=== PATIENT | female | born 1980 | race Caucasian/White ===

== ENCOUNTER → 2017-01-30 09:38 | Emergency (ER) | payer OTHER ==
[~2017-01-30 09:38] MED LIST: LORazepam TAB(*) 1 MG PO ONE; oxyCODONE/Acetamin 5/325 MG* TAB PO ONE
--- NOTE | 2017-01-30 12:37 | RAD ---
HISTORY: Back pain COMPARISONS: CT of the chest dated May 20, 2015 TECHNIQUE: Multiple contiguous axial CT scans were obtained of the thoracic spine without intravenous contrast, with coronal and sagittal multiplanar reformations. FINDINGS: SPINAL CANAL: Evaluation of the central canal is limited on CT technique; however, there is no obvious canalicular mass or epidural hemorrhage. ALIGNMENT: The alignment is normal. VERTEBRAL BODIES: The vertebral bodies are preserved in height. The bones are normal in attenuation. There is mild anterolateral marginal osteophyte formation. There is mild depression of the superior endplate of T12 suggestive of a Schmorl's node versus remote trauma, stable from 2014. JOINTS: There is mild osteoporosis of the costovertebral articulations. MUSCULATURE: Unremarkable INTERVERTEBRAL DISCS: There is mild diffuse loss of intervertebral disc height throughout the spine. AXIAL IMAGES: There is no osseous central canal stenosis or neuroforaminal narrowing. SOFT TISSUES: The visualized soft tissues of the chest and abdomen are unremarkable. OTHER: None IMPRESSION: MILD DEGENERATIVE DISC DISEASE AND OSTEOARTHRITIS. NO OSSEOUS NEURAL FORAMINAL AREA OR CENTRAL CANAL STENOSIS.
--- NOTE | 2017-01-30 12:39 | RAD ---
HISTORY: Back pain COMPARISONS: MRI dated November 26, 2011 TECHNIQUE: Multiple contiguous axial CT scans were obtained of the lumbar spine without intravenous contrast, with coronal and sagittal multiplanar reformations. FINDINGS: SPINAL CANAL: Evaluation of the central canal is limited on CT technique; however, there is no obvious canalicular mass or epidural hemorrhage. ALIGNMENT: The alignment is normal. VERTEBRAL BODIES: The vertebral bodies are preserved in height. The bones are normal in attenuation. There is mild anterolateral marginal osteophyte formation most now set L5-S1 and T11-T12 Incidentally noted is a small accessory ribs at L1 JOINTS: There is mild facet hypertrophy change MUSCULATURE: Unremarkable INTERVERTEBRAL DISCS: There is diffuse loss of intervertebral disc height throughout the spine. AXIAL IMAGES: T12-L1: There is no osseous neural foraminal narrowing or central canal stenosis. L1-L2: There is no osseous neural foraminal narrowing or central canal stenosis. L2-L3: There is no osseous neural foraminal narrowing or central canal stenosis. L3-L4: There is no osseous neural foraminal narrowing or central canal stenosis. L4-L5: There is a mild broad-based disc bulge. There is no osseous neural foraminal area or central canal stenosis. L5-S1: There is a mild broad-based disc bulge. There is no osseous neural foraminal area or central canal stenosis. SOFT TISSUES: The visualized soft tissues of the abdomen are unremarkable. OTHER: None IMPRESSION: MILD DEGENERATIVE DISC DISEASE AND OSTEOARTHRITIS. THERE IS NO SIGNIFICANT OSSEOUS NEURAL FORAMINAL AREA CENTRAL CANAL STENOSIS.
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
[2017-01-30 13:09] VITALS: BP 128/65
== END | disposition home or self-care (01) ==
LOC: ED 09:38
DX: M54.5 Low back pain (principal); M51.36 Other intervertebral disc degeneration, lumbar region; M19.90 Unspecified osteoarthritis, unspecified site; F17.210 Nicotine dependence, cigarettes, uncomplicated
CPT/HCPCS: 72128; 72131; 99282; A9270-GY

== ENCOUNTER 2017-10-11 12:02 | Emergency (ER) | payer MEDICAID ==
--- NOTE | 2017-10-11 13:26 | ED ---
Skin Complaint - HPI Summary HPI Summary: Patient here with red and which she believes are infected spots on her face. Reports a few days ago she developed a red swollen area on the left lower chin - started as pustule. This was quite edematous and so she applied a warm compress and milked the area - she was able to express purulent drainage and reports it is better since (swelling reduced) however she still has redness and irritation. She also woke this morning with another area of redness and irritation within her left eyebrow area. She is a history of cellulitis with staph infection and would like antibiotic to treat these she's had difficulty controlling them in the past once they start. Denies known history of MRSA. No injuries to face - reports the simply popped about an aware. - History of Current Complaint Chief Complaint: EDGeneral Time Seen by Provider: 10/11/17 12:31 Stated Complaint: SWOLLEN SORES ON FACE Hx Obtained From: Patient Pain Intensity: 0 - Allergy/Home Medications Allergies/Adverse Reactions: Allergies Allergy/AdvReac Type Severity Reaction Status Date / Time MS Penicillins [Penicillins] Allergy Intermediate Swelling Verified 01/30/17 11: 11 PMH/Surg Hx/FS Hx/Imm Hx Previously Healthy: Yes Endocrine/Hematology History: Reports: Hx Anemia Denies: Hx Anticoagulant Therapy, Hx Blood Disorders, Hx Diabetes, Autoimmune Disease Musculoskeletal History: Reports: Hx Back Problems - low back pain Sensory History: Reports: Hx Contacts or Glasses - contact lenses Opthamlomology History: Reports: Hx Contacts or Glasses - contact lenses Neurological History: Reports: Hx Headaches - Surgical History Surgery Procedure, Year, and Place: [place] [facility] [place]ious Disease History: No Infectious Disease History: Reports: History Other Infectious Disease - h/o "staph" Denies: Traveled Outside the [place] in Last 30 Days - Family History Known Family History: Positive: Other - POS: CVA, [place] - Social History Lives: With Family Alcohol Use: None Hx Substance Use: Yes Substance Use Type: Reports: Marijuana Substance Use Comment - Amount & Last Used: Xanax, took husbands Oxycodone, smoked pot once Hx Tobacco Use: Yes Smoking Status (MU): Current Every Day Smoker Review of Systems Constitutional: Negative Negative: Fever, Chills Positive: no symptoms reported Musculoskeletal: Negative Skin: Other - wound Neurological: Negative Psychological: Normal All Other Systems Reviewed And Are Negative: Yes Physical Exam Triage Information Reviewed: Yes Vital Signs On Initial Exam: Initial Vitals Temp Pulse Resp BP Pulse Ox 98 F 71 16 124/70 99 10/11/17 12:03 10/11/17 12:03 10/11/17 12:03 10/11/17 12:03 10/11/17 12:03 Vital Signs Reviewed: Yes Appearance: Positive: Well-Appearing, No Pain Distress, Well-Nourished Skin: Positive: Warm, Skin Color Reflects Adequate Perfusion, Dry - erythematous area of edema over Lt eyebrow - warm to touch - no drainage, no chery pustule; erythematous/ecchymotic area over chin - no drainage Eyes: Positive: Normal, EOMI ENT: Positive: Normal ENT inspection, Hearing grossly normal, Pharynx normal - no lesions Neck: Positive: Supple, Nontender, No Lymphadenopathy Respiratory/Lung Sounds: Positive: Clear to Auscultation, Breath Sounds Present Cardiovascular: Positive: Normal Musculoskeletal: Positive: Normal, Strength/ROM Intact Neurological: Positive: Normal, Sensory/Motor Intact, Alert, Oriented to Person Place, Time, CN Intact II-III Psychiatric: Positive: Anxious Diagnostics - Vital Signs Vital Signs Temp Pulse Resp BP Pulse Ox 10/11/17 12:25 98.1 F 73 123/78 98 10/11/17 12:03 98 F 71 16 124/70 99 - Laboratory Lab Statement: Any lab studies that have been ordered have been reviewed, and results considered in the medical decision making process. Course/Dx - Diagnoses Provider Diagnoses: Cellulitis of face Discharge - Sign-Out/Discharge Documenting (check all that apply): Discharge/Admit/Transfer - Discharge Plan Condition: Stable Disposition: HOME Prescriptions: Sulfamethox/Trimethoprim DS* [Bactrim DS 800/160 TAB*] 1 tab PO BID #20 tab Patient Education Materials: Cellulitis (ED) Referrals: [facility], PHOTOENGRAVING PROOFER [Primary Care Provider] - Additional Instructions: Continue to gently wash her areas of concern with antibacterial soap and water. Avoid covering with makeup, moisturizers, etc. to prevent further irritation or congestion of infected area. He may continue to use a warm compress over areas of swelling to encourage drainage is needed. He may take ibuprofen with food as needed for pain or swelling. An antibiotic has been sent to your pharmacy - complete the course as directed and follow-up with PCP if symptoms persist. *If you develop worsening of facial swelling, fever, difficulty breathing or swallowing, return to the emergency department - Billing Disposition and Condition Condition: STABLE Disposition: HOME
[2017-10-11 13:38] VITALS: BP 119/70
== END 2017-10-11 13:28 | disposition home or self-care (01) ==
LOC: ED 12:02
DX: L98.9 Disorder of the skin and subcutaneous tissue, unspecified (principal); F17.200 Nicotine dependence, unspecified, uncomplicated; Z86.19 Personal history of other infectious and parasitic diseases; Z88.0 Allergy status to penicillin
CPT/HCPCS: 99282

== ENCOUNTER 2018-01-30 13:59 | Emergency (ER) | payer OTHER ==
[2018-01-30 14:27] VITALS: BP 119/74
--- OUTSIDE RECORDS SUMMARY | 2018-01-30 14:51 | XMS REPORT ---
:1980 External Reference #:[id number] Author Organization [facility] Address [address] [place] [id number] Phone [phone] Care Team Providers Name Role Phone Nia Stafford M.D., R.D. Primary Care Physician Unavailable Payers Type Date Identification Numbers Payment Provider Subscriber Commercial Expires: Policy Number: [id number] Andrea Gordon 2017 [employer] PayID: [id number] [place] [address] Medigap Part B Effective: Policy Number: Medicaid/Computer Marilyn Gordon 2017 [id number] Science Expires: 2017 Group Name: 1 [address] PayID: [id number] [place] [address] Commercial Effective: Policy Number: Andrea [employer] Marilyn Gordon 2017 [id number] Med PayID: [id number] [place] [address] Problems Description No Information Family History Date Family Member(s) Problem(s) Comments Father Hypertension Father Heart Disease Father Diabetes Mother Depression Social History Type Date Description Comments Marital Status Negative For Lives With Daughter Lives With Son Work Status Not Currently Working Cigarette Use Light tobacco smoker (10 or fewer cigarettes/day) ETOH Use Denies alcohol use Smoking Light tobacco smoker (10 or fewer cigarettes/day) Daily Caffeine Consumes on average 1 cup of coffee per day Daily Caffeine Consumes on average 1 soda per day Exercise Type/Frequency Does not exercise Allergies, Adverse Reactions, Alerts Date Description Reaction Status Severity Comments 07/04/2015 Penicillins active 07/04/2015 Zoloft active Medications Medication Date Status Form Strength Qnty SIG Indications Ordering Provider Hydroxyzine HCL 09/09 Active Tablets 50mg 30tab 1 tab by F41.9 Grupo s mouth Ronald every 6 III, hours as MICA SPREADER-C needed for anxiety Ferrous Sulfate Active Tablets 325(65Fe) 30tab 1 tab by Grupo /0000 mg s mouth Juan Alberto daily III, MICA SPREADER-C Ibuprofen Active Tablets 600mg 60tab take 1 Grupo /0000 s tablet Ronald every 8 III, hours with MICA SPREADER-C food if needed for pain Buspirone HCL 09/09 Hx Tablets 7.5mg 60tab take one F41.9 Grupo s tablet by Ronald - mouth III, 01/01 twice a MICA SPREADER-C day for anxiety Gabapentin 09/09 Hx Capsules 100mg 90cap 1 cap by M54.5 Grupo s mouth at Ronald - bedtime x III, 01/01 3 days, if MICA SPREADER- tolerated add a second cap at dinner x 3 days. Advance to tid if tolerated Hydrochlorothiazide 09/25 Hx Tablets 25mg 30tab 1 by mouth Jeremi /2016 s every day Van Cabrales MD 09/09 Duloxetine HCL 09/[address] 30mg 30cap 1 by mouth F41.9 Jeremi Part s every day Van Cabrales MD 09/09 Tizanidine HCL 09/10 Hx Tablets 4mg 30tab take 1/2-1 M54.5 Grupo s tablet by Juan Alberto - mouth III, 09/25 every 8 MICA SPREADER- hours as needed for muscle spasm Nabumetone 09/10 Hx Tablets 750mg 30tab 2 tabs by M54.5 Grupo /2016 s mouth once Ronald - daily III, 09/09 MICA SPREADER- Oxycodone HCL Hx Tablets 10mg 1 tab by Unknown /0000 mouth - every 4 09/10 hours needed for pain. Hydrochlorothiazide Hx Capsules 12.5mg 1 cap by Unknown /0000 mouth - daily. 09/25 Buspirone HCL Hx Tablets 15mg 5mg by Unknown /0000 mouth - three 09/25 daily. Cyclobenzaprine HCL 00/ Hx Tablets 10mg Take 1/2 Unknown /0000 To 1 - Tablet 09/10 Times A Day as Needed Oxycodone-Acetamino 00/00 Hx Tablets 5-325mg Unknown phen /0000 - 07/04 Hydrocodone-Acetami 00/00 Hx Tablets 5-325mg take 1 Unknown nophen /0000 tablet - every 4 to 07/04 6 hours needed pain Alprazolam Hx Tablets 1mg 1 tab by Unknown /0000 mouth as - needed 09/09 Immunizations CPT Code Status Date Vaccine Lot # [id number] Given 09/09/2017 Tdap (Adacel) [id number] Given 04/27/2014 Influenza Virus Vaccine, Quadrivalent, 3 Yr > Quad, Preserv Free [id number] Refused 09/25/2016 Influenza Virus Vaccine, Quadrivalent, Split, 6-35 Mo, PF Vital Signs Date Vital Result Comment 01/01/2018 Weight 229.00 lb Weight in kg's 103.874 BP Systolic 100 mmHg BP Diastolic 68 mmHg Heart Rate 72 /min Body Temperature 98.1 F Respiratory Rate 16 /min 09/19/2017 Weight 229.00 lb Weight in kg's 103.874 BP Systolic 120 mmHg BP Diastolic 64 mmHg Heart Rate 64 /min Body Temperature 99.0 F Respiratory Rate 16 /min 09/09/2017 Weight 229.00 lb Weight in kg's 103.874 BP Systolic 120 mmHg BP Diastolic 70 mmHg Heart Rate 74 /min Body Temperature 98.3 F Respiratory Rate 16 /min Height 69.5 inches 5'9.50" BMI (Body Mass Index) 33.3 kg/m2 O2 % BldC Oximetry 98 % 09/25/2016 Weight 224.00 lb Weight in kg's 101.606 BP Systolic 120 mmHg BP Diastolic 57 mmHg Heart Rate 80 /min 09/10/2016 Weight 230.00 lb Weight in kg's 104.328 BP Systolic 120 mmHg BP Diastolic 70 mmHg Heart Rate 72 /min Body Temperature 97.2 F Respiratory Rate 16 /min 07/04/2015 Weight 215.00 lb Weight in kg's 97.524 BP Systolic 126 mmHg BP Diastolic 80 mmHg Heart Rate 88 /min Body Temperature 98.2 F O2 % BldC Oximetry 99 % Results Test Date Test Result H/L Range Note Laboratory test finding 09/19/2017 Cytology SEE RESULT BELOW 1 Comp Metabolic Panel 09/09/2017 Sodium 140 mmol/L 139-145 Chloride 107 mmol/L 101-111 Co2 Carbon Dioxide 28 mmol/L 22-32 Glucose 126 mg/dL High 70-100 Blood Urea Nitrogen 16 mg/dL 6-24 Creatinine 0.84 mg/dL 0.51-0.95 BUN/Creatinine Ratio 19.0 8-20 Calcium 9.4 mg/dL 8.6-10.3 Total Protein 6.8 g/dL 6.4-8.9 Albumin 4.3 g/dL 3.2-5.2 Globulin 2.5 g/dL 2-4 Albumin/Globulin Ratio 1.7 1-3 Total Bilirubin 0.20 mg/dL 0.2-1.0 Alkaline Phosphatase 95 U/L 34-104 Alt 28 U/L 7-52 Ast 18 U/L 13-39 Egfr Non- 76.3 >60 Egfr 98.1 >60 2 Potassium 5.3 mmol/L High 3.5-5.0 Anion Gap 5 mmol/L 2-11 CBC Auto Diff 09/09/2017 White Blood Count 6.3 10^3/uL 3.5-10.8 Red Blood Count 4.10 10^6/uL 4.0-5.4 Hemoglobin 11.7 g/dL Low 12.0-16.0 Hematocrit 36 % 35-47 Mean Corpuscular Volume 87 fL 80-97 Mean Corpuscular Hemoglobin 29 pg 27-31 Mean Corpuscular HGB Conc 33 g/dL 31-36 Red Cell Distribution Width 16 % High 10.5-15 Platelet Count 298 10^3/uL 150-450 Mean Platelet Volume 8.2 um3 7.4-10.4 Abs Neutrophils 3.8 10^3/uL 1.5-7.7 Abs Lymphocytes 1.8 10^3/uL 1.0-4.8 Abs Monocytes 0.5 10^3/uL 0-0.8 Abs Eosinophils 0.2 10^3/uL 0-0.6 Abs Basophils 0.1 10^3/uL 0-0.2 Abs Nucleated RBC 0 10^3/uL Granulocyte % 60.0 % 38-83 Lymphocyte % 27.9 % 25-47 Monocyte % 7.8 % High 0-7 Eosinophil % 3.2 % 0-6 Basophil % 1.1 % 0-2 Nucleated Red Blood Cells % 0 Laboratory test finding 09/09/2017 Ferritin < 10.0 ng/mL Low 11-307 3 Vitamin D Total 25(Oh) 28.5 ng/mL 20-50 4 TSH (Thyroid Stim Horm) 1.91 mcIU/mL 0.34-5.60 5 Folic Acid (Folate) 10.94 ng/mL >3.99 6 Vitamin B12 531 pg/mL 180-914 7 1 SEE RESULT BELOW Name: MARILYN GORDON : [address]: Sally Nation NP Acct: [id number] Unit: [id number] AGE: 37 Location: [facility] Re09/19/17 SEX: F Status: REG REF SPEC: [id number] TAYLOR: 09/19/17-1053 [facility] DR: Sally Nation NP REQ: [id number] RECD: 09/19/17-1301 STATUS: SOUT _ ORDERED: TP IMAGE ANALYS, HPV/Thin Prep, HPV 16/18 GENE COMMENTS: [id number] Negative for Intraepithelial lesion or Malignancy Shift in junior suggestive of bacterial vaginosis A. Ectocervical/Endocervical Specimen Adequacy: Satisfactory of evaluation Transformation zone component identified Patient Information: HPV: High risk HPV RNA testing regardless of pap results. HPV 16/18 Genotype Reflex Actual Specimen Date: 09/19/17 LMP If Unknown: unknown Spec Date if unknown: unknown Date Time Test Result Flag (u) Normal Range 09/19/17 1053 @ HPV RNA RFLX GE Negative Negative @ @ The high-risk HPV types detected by the assay include: 16, @ 18, 31, 33, 35, 39, 45, 51, 52, 56, 58, 59, 66, and 68. Signed (signature on file) MORA Mckee(ASC) 09/22 6605 This Pap test was evaluated with the assistance of the travelfoxPrep Test Imaging System. Due to cytologic findings at the trainer microscope, comprehensive manual rescreening by a Manager Infusion may be required. The Pap Smear is a screening test designed to aid in the detection of premalignant and malignant conditions of the uterine cervix. It is not a diagnostic procedure and should not be used as the sole means of detecting cervical cancer. Both false- positive and false- negative reports do occur. Depending on your risk status, a Pap smear should be obtained and evaluated every 1-3 years. END OF REPORT DEPARTMENT OF PATHOLOGY, [address] [place] [address] Salinas Ellington M.D. Director [facility] # [id number] 2 Because ethnic data is not always readily available, this report includes an eGFR for both -Americans and non- Americans. The National Kidney Disease Education Program (NKDEP) does not endorse the use of the MDRD equation for patients that are not between the ages of 18 and 70, are , have extremes of body size, muscle mass, or nutritional status, or are non- or non-. According to the National Kidney Foundation, irrespective of diagnosis, the stage of the disease is based on the level of kidney function: Stage Description GFR(mL/min/1.73 m(2)) 1 Kidney damage with normal or decreased GFR 90 2 Kidney damage with mild decrease in GFR 60-89 3 Moderate decrease in GFR 30-59 4 Severe decrease in GFR 15-29 5 Kidney failure <15 (or dialysis) 3 [id number] 4 [id number] 5 [id number] 6 [id number] 7 Normal Range 180 to 914 Indeterminate Range 145 to 180 Deficient Range <145 Procedures Description No Information Encounters Type Date Location Provider CPT E/M Dx Office Visit 09/19/2017 10:00a [place] [address] Z12.4 Office Visit 09/09/2017 1:30p Main Office SHIRAZ Roque III-Danita 16303 Z00.01 F41.9 M54.5 D53.9 R60.9 Z23 Office Visit 09/25/2016 10:00a [place] [address] F41.9 M54.5 D53.9 R60.9 Office Visit 09/10/2016 9:00a Main Office SHIRAZ Roque III-C [address]70 M54.5 Office Visit 07/04/2015 10:15a Main Office SHIRAZ Roque III-Danita [address]952 G89.11 Plan of Care 01/01/2018 - Sally Shortle, NPM54.5 Low back painNew Xrays:Spine, Lumbosacral , Bending ViewsComments:No acute concerns today.Start with imaging. Discussed possible referral to polymer specialist and/or pain clinicEducated on new/ worsening symptoms and when to call/return or seek immediate medical attentionPatient stated understanding and agrees to planFollow up:schedule lumbar spine xrayM25.522 Pain in left elbowNew Therapy:Physical Therapy- Evaluate And TreatComments:No acute concerns today.Refer to physical therapy.Agrees to return if no improvement or new/worsening symptomsDiscussed home supportive care alsoFollow up:refer to physical therapy for left elbow pain
== END 2018-01-30 18:54 | disposition left against medical advice (07) ==
LOC: ED 13:59
DX: R10.9 Unspecified abdominal pain (principal); Z53.21 Procedure and treatment not carried out due to patient leaving prior to being seen by health care provider

== ENCOUNTER → 2018-12-31 12:33 | Emergency (ER) | payer OTHER ==
[~2018-12-31 12:33] MED LIST changes: +Ketorolac INJ* 30 MG/ML 1 ML VIAL IM ONE; -LORazepam TAB(*) 1 MG PO ONE; -oxyCODONE/Acetamin 5/325 MG* TAB PO ONE
[2018-12-31 14:36] VITALS: BP 152/78
--- NOTE | 2018-12-31 18:32 | ED ---
Upper Extremity Pain - History of Current Complaint Chief Complaint: EDExtremityUpper Stated Complaint: SEVERE BACK PAIN AND WRIST PAIN PT Time Seen by Provider: 12/31/18 12:44 Hx Obtained From: Patient - Allergies/Home Medications Allergies/Adverse Reactions: Allergies Allergy/AdvReac Type Severity Reaction Status Date / Time MS Penicillins [Penicillins] Allergy Intermediate Swelling Verified 12/31/18 12: 40 Home Medications: Home Medications NK [No Home Medications Reported] 12/31/18 [History Confirmed 12/31/18] PMH/Surg Hx/FS Hx/Imm Hx Previously Healthy: Yes Endocrine/Hematology History: Reports: Hx Anemia Denies: Hx Anticoagulant Therapy, Hx Blood Disorders, Hx Diabetes Musculoskeletal History: Reports: Hx Back Problems - low back pain Sensory History: Reports: Hx Contacts or Glasses - contact lenses Opthamlomology History: Reports: Hx Contacts or Glasses - contact lenses Neurological History: Reports: Hx Headaches - Surgical History Surgery Procedure, Year, and Place: D&C 2002 [facility] [place] Infectious Disease History: No Infectious Disease History: Reports: History Other Infectious Disease - h/o "staph" Denies: Traveled Outside the [place] in Last 30 Days - Family History Known Family History: Positive: Other - POS: CVA, [place], Non-Contributory - Social History Occupation: Unemployed Lives: With Family Alcohol Use: None Hx Substance Use: Yes Substance Use Type: Reports: Marijuana Substance Use Comment - Amount & Last Used: Xanax, took husbands Oxycodone, smoked pot once Hx Tobacco Use: Yes Smoking Status (MU): Current Every Day Smoker Review of Systems Constitutional: Negative Negative: Fever, Chills Cardiovascular: Negative Respiratory: Negative Gastrointestinal: Negative Negative: Abdominal Pain Genitourinary: Negative Negative: dysuria, flank pain Positive: Other - left wrist and low back pain Skin: Negative Positive: Paresthesia All Other Systems Reviewed And Are Negative: Yes Physical Exam Triage Information Reviewed: Yes Vital Signs On Initial Exam: Initial Vitals Temp Pulse Resp BP Pulse Ox 98.5 F 86 18 157/89 99 12/31/18 12:35 12/31/18 12:35 12/31/18 12:35 12/31/18 12:35 12/31/18 12:35 Vital Signs Reviewed: Yes Appearance: Positive: Well-Appearing - Pt. sitting on bed in NAD. SO present. Ambulatory without difficulty. Skin: Positive: Warm, Dry Head/Face: Positive: Normal Head/Face Inspection Eyes: Positive: Normal, EOMI Neck: Positive: Supple Musculoskeletal: Positive: Normal, Strength/ROM Intact, Other - 5/5 strength in bilateral LEs. Positive straight leg at about 45 degrees. low midline tenderness and pain over bilateral SI joints. Neurological: Positive: Normal, CN Intact II-III Psychiatric: Positive: Affect/Mood Appropriate Diagnostics - Vital Signs Vital Signs Temp Pulse Resp BP Pulse Ox 12/31/18 14:35 98.6 F 84 16 152/78 99 12/31/18 12:35 98.5 F 86 18 157/89 99 - Laboratory Lab Statement: Any lab studies that have been ordered have been reviewed, and results considered in the medical decision making process. Course/Dx - Diagnoses Provider Diagnoses: Chronic low back pain, Tendonitis Discharge - Sign-Out/Discharge Documenting (check all that apply): Patient Departure Patient Received Moderate/Deep Sedation with Procedure: No - Discharge Plan Condition: Good Disposition: HOME Patient Education Materials: Tendinitis (ED), Chronic Back Pain (DC) Referrals: Care [facility] [Outside] Jerod Hough MD [Medical Doctor] - Additional Instructions: Schedule a follow up appointment with your PCP and orthopedics Ice and elevate wrist Wear splint Ibuprofen 600mg-800mg every 8 hours x 1-2 weeks Return to ER if symptoms change or worsen - Billing Disposition and Condition Condition: GOOD Disposition: Home
== END | disposition home or self-care (01) ==
LOC: ED 12:33
DX: M54.5 Low back pain (principal); G89.29 Other chronic pain; M77.9 Enthesopathy, unspecified; D64.9 Anemia, unspecified; F17.210 Nicotine dependence, cigarettes, uncomplicated; Z88.0 Allergy status to penicillin
CPT/HCPCS: 96372; 99281; J1885

== ENCOUNTER 2019-02-16 22:25 | Emergency (ER) | payer OTHER ==
--- NOTE | 2019-02-16 23:58 | ED ---
Back Pain - HPI Summary HPI Summary: Patient complains of right lower side back pain radiating down right leg starting yesterday. History of same. Patient states she was moving things around in her house yesterday. Denies change in urine, change in bowel movements, fever, cough, sore throat, CP, SOB, N/V/D, abdominal pain. - History of Current Complaint Chief Complaint: EDBackInjuryPain Stated Complaint: LOWER BACK PAIN PER PT Time Seen by Provider: 02/16/19 23:45 Hx Obtained From: Patient Onset/Duration: Gradual Onset, Lasting Days Onset/Duration: Started Days Ago Timing: Constant Back Pain Location: Radiates To Severity Initially: Severe Severity Currently: Severe Pain Intensity: 10 Pain Scale Used: 0-10 Numeric Character: Sharp, Dull, Aching Aggravating Symptom(s): Movement, Bending Alleviating Symptom(s): Rest, Position Associated Signs And Symptoms: Positive: Negative - Allergies/Home Medications Allergies/Adverse Reactions: Allergies Allergy/AdvReac Type Severity Reaction Status Date / Time Penicillins Allergy Swelling Verified 02/16/19 22:52 PMH/Surg Hx/FS Hx/Imm Hx Endocrine/Hematology History: Reports: Hx Anemia Denies: Hx Anticoagulant Therapy, Hx Blood Disorders, Hx Diabetes Cardiovascular History: Denies: Hx Pacemaker/ICD History: Denies: Hx Dialysis Musculoskeletal History: Reports: Hx Back Problems - low back pain Sensory History: Reports: Hx Contacts or Glasses - contact lenses Opthamlomology History: Reports: Hx Contacts or Glasses - contact lenses EENT History: Denies: Hx Deafness Neurological History: Reports: Hx Headaches - Surgical History Surgery Procedure, Year, and Place[place] [facility] [place] Infectious Disease History: No Infectious Disease History: Reports: History Other Infectious Disease - h/o "staph" Denies: Traveled Outside the [place] in Last 30 Days - Family History Known Family History: Positive: Other - POS: CVA, [place], Non-Contributory - Social History Alcohol Use: Rare Hx Substance Use: Yes Substance Use Type: Reports: Marijuana Substance Use Comment - Amount & Last Used: Xanax, took husbands Oxycodone, smoked pot once Hx Tobacco Use: Yes Smoking Status (MU): Current Every Day Smoker Review of Systems Constitutional: Negative Eyes: Negative ENT: Negative Cardiovascular: Negative Respiratory: Negative Gastrointestinal: Negative Genitourinary: Negative Musculoskeletal: Other Skin: Negative Neurological: Negative Psychological: Normal All Other Systems Reviewed And Are Negative: Yes Physical Exam - Summary Physical Exam Summary: Tenderness to palpation along the lower right side paraspinal muscles of the lumbar spine. Normal range of motion of right hip and right knee. PMS intact distally. No ecchymosis, erythema, deformity, swelling noted to back. Triage Information Reviewed: Yes Vital Signs On Initial Exam: Initial Vitals Temp Pulse Resp BP Pulse Ox 100.1 F 112 24 151/90 98 02/16/19 22:25 02/16/19 22:25 02/16/19 22:25 02/16/19 22:25 02/16/19 22:25 Vital Signs Reviewed: Yes Appearance: Positive: Well-Appearing Skin: Positive: Warm Head/Face: Positive: Normal Head/Face Inspection Eyes: Positive: Normal Neck: Positive: Supple Respiratory/Lung Sounds: Positive: Clear to Auscultation Cardiovascular: Positive: Normal Abdomen Description: Positive: Nontender Musculoskeletal: Positive: Normal Neurological: Positive: Normal Psychiatric: Positive: Normal AVPU Assessment: Alert - Saadia Coma Scale Best Eye Response: 4 - Spontaneous Best Motor Response: 6 - Obeys Commands Best Verbal Response: 5 - Oriented Coma Scale Total: 15 Procedures - Sedation Patient Received Moderate/Deep Sedation with Procedure: No Diagnostics - Vital Signs Vital Signs Temp Pulse Resp BP Pulse Ox 02/16/19 22:25 100.1 F 112 24 151/90 98 - Laboratory Result Diagrams: 02/17/19 00:09 02/17/19 00:09 Lab Statement: Any lab studies that have been ordered have been reviewed, and results considered in the medical decision making process. Back Pain Course/Dx - Course Course Of Treatment: Patient complains of right lower side back pain radiating down right leg starting yesterday. History of same. Patient states she was moving things around in her house yesterday. Denies change in urine, change in bowel movements, fever, cough, sore throat, CP, SOB, N/V/D, abdominal pain. Vital signs within normal limits. Patient pain improved with Valium 5 mg by mouth, Toradol 30 mg IM and lidocaine patch. - Diagnoses Provider Diagnoses: Sciatica Discharge ED - Sign-Out/Discharge Documenting (check all that apply): Patient Departure Patient Received Moderate/Deep Sedation with Procedure: No - Discharge Plan Condition: Stable Disposition: HOME Prescriptions: Cyclobenzaprine TAB* [Flexeril 10 MG TAB*] 10 mg PO TID PRN 7 Days #20 tab PRN Reason: Spasms Lidocaine PATCH 5%* [Lidoderm 5% Patch*] 1 patch TRANSDERM DAILY 5 Days #5 patch Patient Education Materials: Sciatica (ED) Referrals: No Primary Care Phys,NOPCP [Primary Care Provider] - Warren Burns MD [Medical Doctor] - Additional Instructions: Follow-up with Neurosurgery Dr Felipe for further evaluation of back pain. Return to the ED for any new or worsening symptoms. - Billing Disposition and Condition Condition: STABLE Disposition: Home
[2019-02-17 00:20] LABS: ABS Basophils 0.1 10^3/ul (0-0.2); ABS Eosinophils 0.1 10^3/ul (0-0.6); ABS Lymphocytes 1.8 10^3/ul (1.0-4.8); ABS Monocytes 0.7 10^3/ul (0-0.8); ABS Neutrophils 5.9 10^3/ul (1.5-7.7); Eosinophil % 1.5 %; Hematocrit 32 % (35-47); Hemoglobin 10.9 g/dL (12.0-16.0); Lymphocyte % 21.1 %; Mean Corpuscular HGB Conc 34 g/dL (31-36); Mean Corpuscular Hemoglobin 30 pg (27-31); Mean Corpuscular Volume 88 fL (80-97); Mean Platelet Volume 7.5 fL (7.4-10.4); Nucleated Red Blood Cells % 0.1; Platelet Count 321 10^3/uL (150-450); Red Blood Count 3.66 10^6 /uL (3.70-4.87); Red Cell Distribution Width 15 % (10-15); White Blood Count 8.6 10^3/uL (3.5-10.8)
[2019-02-17 00:39] LABS: Albumin 4.2 g/dL (3.2-5.2); Albumin/Globulin Ratio 1.7 (1-3); BUN/Creatinine Ratio 19.8 (8-20); C Reactive Protein 24.23 mg/L (<8.01); Calcium 8.6 mg/dL (8.6-10.3); EGFR African American 83.3 (>60); EGFR Non-African American 68.8 (>60); Globulin 2.5 g/dL (2-4); Total Bilirubin 0.3 mg/dL (0.2-1.0); Total Protein 6.7 g/dL (6.4-8.9)
[2019-02-17] MEDS ORDERED: Ketorolac INJ* 30 MG/ML 1 ML VIAL IV ONE (00:40)
[2019-02-17] MEDS ORDERED: Diazepam TAB(*) 5 MG PO ONE (00:40)
[2019-02-17 00:46] LABS: HCG Pregnancy 0.62 mIU/mL
[2019-02-17] MEDS ORDERED: Lidocaine PATCH 5%* 1 PATCH TRANSDERM SCH (01:00)
[2019-02-17 01:18] VITALS: BP 131/77
[2019-02-17] MEDS ORDERED: Lidocaine Patch REMOVE* 1 NOTE MISC SCH (21:00)
== END 2019-02-17 01:20 | disposition home or self-care (01) ==
LOC: ED 22:25
DX: M54.30 Sciatica, unspecified side (principal); M54.5 Low back pain; R51 Headache
CPT/HCPCS: 36415; 80053; 83605; 84702; 85025; 86140; 87040; 96374; 99282; A9270-GY; J1885

== ENCOUNTER 2022-11-15 05:05 | Inpatient (IN) ==
[2022-11-15 08:43] LABS: Urine Benzodiazepine Screen None Detected (None Detect); Urine Buprenorphine Screen None Detected (None Detect); Urine Cannabinoids Screen None Detected (None Detect); Urine Fentanyl Screen None Detected (None Detect); Urine Hydrocodone Screen None Detected (None Detect); Urine Opiates Screen None Detected (None Detect)
[2022-11-15] MEDS ORDERED: Al Hydrox/Mg Hydrox/Simet LIQ 30 ML UDC PO PRN (12:11)
[2022-11-15] MEDS ORDERED: OLANZapine 5 mg TAB *ODT PO PRN (12:13)
[2022-11-16 08:38] LABS: HDL Cholesterol 53.4 mg/dL
[2022-11-16] MEDS: Vitamin THERAPEUTIC TAB PO SCH (08:43)
[2022-11-17] MEDS: Vitamin THERAPEUTIC TAB PO SCH (09:32)
[2022-11-18] MEDS: Vitamin THERAPEUTIC TAB PO SCH (07:44)
[2022-11-19 07:31] VITALS: BP 127/75
[2022-11-19] MEDS: Vitamin THERAPEUTIC TAB PO SCH (07:33)
== END 2022-11-19 12:55 | disposition home or self-care (01) | DRG 750 ==
LOC: ED 05:05 → BSU 11:20
PROVIDERS: ADMIT Student in an Organized Health Care Education/Training Program; ATTEND Student in an Organized Health Care Education/Training Program